=== PATIENT | female | born 1940 | race Caucasian/White ===

== ENCOUNTER 2017-08-27 13:58 | Inpatient (IN) | payer MEDICARE ==
[~2017-08-27] VITALS: Ht 152.4 cm; Wt 53.1 kg
[~2017-08-27 13:58] MED LIST: ATORVASTATIN CA40 MG PO; CARVEDILOL12.5 MG PO; CYMBALTA60 MG PO; FUROSEMIDE 40 M40 MG PO; GABAPENTIN 100100 MG PO; NORVASC5 MG PO; ULTRAM 50MG TAB50 MG PO
[2017-08-27 14:01] VITALS: BP 155/64
[2017-08-27 14:21] LABS: ABSOLUTE EOSINOPHILS 0.2 thou/uL (0.0-0.7); ABSOLUTE LYMPHOCYTES 1.6 thou/uL (0.8-5.3); ABSOLUTE MONOCYTES 0.7 thou/uL (0.0-1.2); ABSOLUTE NEUTROPHILS 5.1 thou/uL (1.6-8.1); BASOPHILS 0.6 %; HEMATOCRIT 37.3 % (37.0-47.0); HEMOGLOBIN 12.2 gm/dL (12.0-15.0); LYMPHOCYTES 20.7 %; MCH 31.3 pg (26.0-34.0); MCHC 32.8 g/dL (28.0-37.0); MCV 95.4 fL (80.0-100.0); MONOCYTES 9.7 %; MPV 7.8 fl. (7.2-11.1); NUCLEATED RBCS 0 /100WBC; PLATELET COUNT* 201 thou/uL (150-400); RBC 3.91 mil/uL (4.20-5.00); RDW-CV 13.8 % (10.5-14.5); WBC 7.6 thou/uL (4.0-11.0)
[2017-08-27 14:29] LABS: ANION GAP 9 mmol/L (7-16); BUN 23 mg/dL (7-18); CALCIUM 9.3 mg/dL (8.5-10.1); CHLORIDE 100 mmol/L (98-107); CO2 26 mmol/L (21-32); GLUCOSE 84 mg/dL (70-99); POTASSIUM 3.3 mmol/L (3.5-5.1); SODIUM 135 mmol/L (136-145)
[2017-08-27 14:33] LABS: APTT 26.7 Seconds (25.0-31.3); INR 1.1; PROTIME 10.3 Seconds (9.20-11.50)
[2017-08-27 14:48] LABS: ALBUMIN 3.5 g/dL (3.4-5.0); ALKALINE PHOSPHATASE 72 U/L (46-116); CK-MB MASS 4.4 ng/mL (<0.5-3.6); LIPASE 2123 U/L (73-393); MAGNESIUM 1.5 mg/dL (1.8-2.4); NT-PRO BRAIN NAT PEPTIDE 410 pg/mL (<300); SGOT 20 U/L (15-37); SGPT 21 U/L (30-65); TOTAL BILIRUBIN 0.6 mg/dL (<0.1-1.0); TOTAL PROTEIN 6.6 g/dL (6.4-8.2); TROPONIN-I LEVEL <0.06 ng/mL (<0.06)
[2017-08-27 16:46] VITALS: BP 165/61
[2017-08-27 17:16] VITALS: BP 166/65
[2017-08-27] MEDS ORDERED: ASPIR 8181 MG PO (17:44)
--- NOTE | 2017-08-27 19:26 | NUR ---
PT ADMITED TO TELE UNDER THE CARE OF DR APARICIO. PT ORIENTED TO THE UNIT AND SERVICES. NEUROLOGY PROFESSOR APPLIED AND VS OBTAINED. PT C/O PAIN IN UPPER ABD AREA TREATED WITH PRN IV PAIN MEDICATIONS BUT PT REPORTS ONLY PARTIAL RELIEF. DR APARICIO NOTIFIED OF PAIN. MEDICATIONS RECONCILED, ASSESSMENT COMPLETED. NURSING WILL CONTINUE TO MONITOR.
[2017-08-27 20:10] VITALS: BP 141/45
[2017-08-27] MEDS ORDERED: SINGULAIR 10 MG10 M1 PO (21:34)
[2017-08-28] VITALS: BP 142/55
[2017-08-28 04:30] VITALS: BP 151/55
--- NOTE | 2017-08-28 05:40 | NUR ---
ASSUMED CARE AROUND 1930. PT A/OX4, FORGETFUL AT TIMES, VERY PLEASANT. FAMILY IN LAST NIGHT TO CELEBRATE MOTHERS DAY WITH PT. PT REPORTING ABDOMINAL PAIN, WORSE WITH TOUCH. TELE MONITOR TRACING SR/SB WITH HR DOWN TO 50'S. ON 2L NC. IVF INFUSING ORDERED. VSS, AFEBRILE. NPO, SIP OF WATER GIVEN WITH HS MEDS, PT TOLERATED WELL. DENIES NAUSEA. UP SBA. PT APPEARED TO REST WELL. WILL CONTINUE WITH PLAN OF CARE.
[2017-08-28 08:00] VITALS: BP 164/75
--- NOTE | 2017-08-28 08:00 | NUR ---
ASSUMED PT. CARE AND RECEIVED REPORT AT 0730. PT A/OX4, BUT FORGETFUL AT TIMES. VSS, MONITOR ON TRACING SB. FULL ASSESSMENT COMPLETED, REFER TO CHARTING. PT. ON RA @ 92%, O2 AT HS 2LNC. PT. WORRIED ABOUT FEEDING CHICKENS AT HOME AND STATES SHE ALSO HAS SOME LEGAL DOCUMENT THAT NEEDS TO BE TAKEN CARE OF SO SHE WANTS TO LEAVE SOON. C/O MILD PAIN 3/10 POST PAIN MED, STATES IT IS TOLERABLE AT THIS TIME. CALL LIGHT IN REACH, WILL CONTINUE WITH PLAN OF CARE.
[2017-08-28] MEDS ORDERED: OMEPRAZOLE 20 M20 MG PO (08:33)
--- NOTE | 2017-08-28 10:11 | EKG ---
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
--- NOTE | 2017-08-28 12:00 | NUR ---
MET WITH PT TO DISCUSS HOME SITUATION/DC PLANNING. PT LIVES IN SAME HOME HER DTR/SON IN LAW AND FAMILY. SHE HAS HER OWN AREA THAT IS 'LIKE A SUITE.' PT IS ABLE TO DO HER OWN ADLS BUT NEEDS SOME HELP WITH CLEANING, STATES HER GRANDDTR IS GOING TO ASSIST HER. PT WEARS O2 2-3L AT NIGHT THRU 'ABLE' AND HAS NEBULIER, WALKER AND CANE THAT SHE USES PRN. PT HAS BEEN TO SNF IN THE PAST IN 2 DIFFERENT STATES BUT NOT IN THIS AREA. DENIES HAVING HH. PT PLANS TO RETURN HOME AT [place]. DENIES NEEDS AT THIS TIME. WILL FOLLOW
[2017-08-28 12:17] VITALS: BP 129/53
[2017-08-28 14:10] LABS: CREATININE 0.8 mg/dL (0.6-1.3); MAGNESIUM 1.7 mg/dL (1.8-2.4); POTASSIUM 3.7 mmol/L (3.5-5.1)
[2017-08-28 16:06] VITALS: BP 146/66
--- NOTE | 2017-08-28 19:15 | NUR ---
PT. STABLE THROUGH SHIFT. CONTINUES ON IVF'S, TOLERATING. STARTED CLEAR LIQUID DIET, NO ADVERSE EFFECTS NOTED. PT. UP TO SHOWER, STEADY ON FEET. PAIN WELL CONTROLLED WITH ULTRAM. HOURLY ROUNDING COMPLETED THROUGH OUT THE DAY FOR PT. SAFETY.
[2017-08-28 20:00] VITALS: BP 131/56
[2017-08-29] VITALS: BP 107/55
[2017-08-29 04:00] VITALS: BP 150/72
--- NOTE | 2017-08-29 06:03 | NUR ---
ASSUMED PT CARE AT !9:15. REPORT RECEIVED FORM NURSE. PT IS ALERT AWAKE ORIENTED X4. FORGETFUL AT TIME. FAMILY MEMEBRES AT BEDDIDE. PT IS LAYING IN BED GETTING 2 L O2 VIA NC. VITAL SIGNS TAKEN, RESULTS WITHIN NORMAL LIMIT. ASSESSMENT PERFOREMED AT BEDSIDE. REFER TO CHART. SINUS RYTHM TO AINSLEY ON THE CREDIT OPERATIONS PROCESSOR. PT STATES THAT SHE HAS SOME GENERALIZED PAIN. TRAMADOL WAS GIVEN. IV LINE PATENT NS INFUSING AT 150CC /HR. PT DID NOT SLEEP WELL DURING SHIFT BECASUE SHE REFUSES TO TURN LIGHTS AND TV OFF. SHE READ MOST OF THE NIGHT. MEDICATIONS WERE ADMINSTERED ORDERED WELL SECOND DOSE OF MAG REPLACEMENT. NS BAG CHANGED OVERNIGHT NEEDED. LAB VALUES REVIEWED THIS AM. PT IS LAYING IN BED. WITH NC ON DELOIVERING 2 L.
[2017-08-29 08:02] VITALS: BP 137/55
--- NOTE | 2017-08-29 08:49 | NUR ---
RECIEVED REPORT FROM IAN AND ASSUMED CARE OF PT @ 1649.PT IS A/O X4,VSS,TRACING SB ON MONITOR.LUNG SOUNDS ARE COARSE AND WHEEZY.LAST BM YESTERADAY.IV RIGHT FOREARM PATENT WITH NS RUNNING @ 150ML/HR.PT IS CALM AND COOPERATIVE WITH C/O PAIN 4 OUT OF 10 ABDOMNIAL PAIN.PT IS UP AD ROXANA IN ROOM.CALL LIGHT IN PLACE.WILL CONTINUE TO MONITOR.
[2017-08-29 09:09] LABS: HEPATITIS B SURFACE AG Negative (Negative)
[2017-08-29 11:59] VITALS: BP 134/64
[2017-08-29 15:16] VITALS: BP 109/52
--- NOTE | 2017-08-29 17:04 | NUR ---
VSS,CARDIAC MONITORING IN PLACE WITH NO CHANGES.PT REMAINS ON 2L O2 NC.PT RPOGRESSING TOWARDS GOALS.PT PAIN WELL MANAGED WITH PO MEDICATION.IV PATENT AND SALINE LOCKED.PT TOLERATING FULL LIQUID DIET WELL.PT INFORMED OF PLAN OF CARE AND COMMUNICATES UNDERSTANDING.PT UP AD ROXANA IN ROOM AND TO BATHROOM.HOURLY ROUNDING COMPLETED FOR PT SAFETY.CALL LIGHT IN PLACE.WILL CONTINUE TO MONITOR FOR DURATION OF SHIFT.
[2017-08-29 20:00] VITALS: BP 146/60
--- NOTE | 2017-08-29 23:23 | NUR ---
ASSUMED PT CARE AT 19:15. REPORT RECEIVED FROM NURSE. PT IS ALERT, AWAKE, ORIENTED X 4. SINUS AINSLEY ONTHE MONITOR, IV LINE IS PATENT. COMPLAIN OF GENERALIZED ABDOMINAL PAIN LEVEL OF 5. VITALS ARE WITHIM NORMAL LIMIT. ASSESSMENT PERFORMED AT BEDSIDE. FOUND SOME WHEEZING IN ALL FOUR QUADRANTS . LASIX WAS ADMINSTERED PREVIOUS SHIFT AND IV FLUID WAS STOPPED. OXYGEN SATURATION IS 94 ON 3 L NC. BREATHING TREATMENT EAS RECEIVED SCHEDULES. PT IS ASYMPTOMATIC. NO SOB. WILL CONTINUE TO MONITOR BREATHING AND LUNG SOUNDS AND CONTACT MD GLOBAL TRANSPORTATION MANAGER IN THE AM FOR SOME MORE LASIX. IF PT BECOMES SYMPTOMATIC, WILL CONTACT MD IMMEDIATELY. TRAMADOL WAS ADMINISTERED FOR ABDOMINAL PAIN ALONG WITH OTHER SCHEDULED MEDICATIONS. PT IS NOW RESTING IN BED. MAGNESIUM REPLACEMENT WAS ADMINISTERED. WILL GIVE SECOND DOSE IN THE AM. WILL CONTINUE TO MONITOR LUNGS AND O2 SATURATION.
[2017-08-30] VITALS: BP 156/66
[2017-08-30 04:00] VITALS: BP 166/67
[2017-08-30 04:54] LABS: HEMATOCRIT 36.1 % (37.0-47.0); MCH 31.4 pg (26.0-34.0); MCHC 33.2 g/dL (28.0-37.0); MCV 94.7 fL (80.0-100.0); MPV 8.6 fl. (7.2-11.1); RBC 3.81 mil/uL (4.20-5.00); RDW-CV 14.5 % (10.5-14.5); WBC 8.3 thou/uL (4.0-11.0)
[2017-08-30 05:07] LABS: CALCIUM 7.9 mg/dL (8.5-10.1); CREATININE 0.7 mg/dL (0.6-1.3); MAGNESIUM 1.7 mg/dL (1.8-2.4); POTASSIUM 3.7 mmol/L (3.5-5.1)
[2017-08-30 05:19] LABS: ALBUMIN 2.8 g/dL (3.4-5.0); DIRECT BILIRUBIN 0.1 mg/dL (<0.1-0.3); TOTAL BILIRUBIN 0.5 mg/dL (<0.1-1.0); TOTAL PROTEIN 5.7 g/dL (6.4-8.2)
[2017-08-30 08:00] VITALS: BP 136/76
--- NOTE | 2017-08-30 08:11 | NUR ---
RECIEVED REPORT FROM IAN AND ASSUMED CARE OF PT @ 7565.PT IS A/O X4,VSS,TRACING SB ON MONITOR.LUNG SOUNDS ARE COARSE WITH WHEEZES.LAST BM WAS YESTERDAY.IV RIGHT FOREARM PATENT AND SALINE LOCKED.PT IS CALM AND COOPERATIVE WITH NO C/O PAIN AT TIME OF ASSESSMENT.PT IS UP AD ROXANA IN ROOM TO BATHROOM.LEFT RESTING IN BED WITH CALL LIGHT IN PLACE.PT IS HOPING FOR POSSIBLE DISCHARGE TODAY.WILL CONTINUE TO MONITOR.
[2017-08-30 10:20] LABS: CHOLESTEROL 112 mg/dL (<200); TRIGLYCERIDE 76 mg/dL (<150)
[2017-08-30 12:05] VITALS: BP 130/58
[2017-08-30 14:18] VITALS: BP 130/58
--- NOTE | 2017-08-30 15:41 | NUR ---
RECIEVED DISCHARGE ORDERS.PAPERWORK COMPLETED AND REVIEWED WITH PT.IV REMOVED. HEART MONITOR REMOVED AND RETURNED TO NURSING STATION.ALL PERSONAL BELONGINGS PACKED AND TAKEN WITH PT.WALKED OUT WITH TECH TO FRONT OF HOSPITAL @ 6815.
--- NOTE | 2017-09-11 08:22 | CON ---
[address] [address] CONSULTATION Name: SHAKILA GALEANO Room: [address] IN ..#: [id number] Admission: 08/27/17 Attend Phys: Laine Cody Discharge: 08/30/17 Date of : 40 Report #: [id number] THIS REPORT FOR: //name// CC: Madalyn Lainez DATE OF SERVICE: 08/29/2017 ADDENDUM This is a 76-year-old female who presented to hospital with epigastric pain, which she thought that she may be having a heart attack. The patient reports that the night before, she was eating lobster that her daughter had sent from [facility]. She also had a lot of butter . She has been told that she has high triglycerides in the past, but has not been taking anything for it. Since admission, she was found to have elevated lipase with normal liver function tests. CT also shows 3.5 cm x 3.5 cm abdominal aortic aneurysm without there being any peripancreatic inflammation. The patient reports that since her C. diff couple years ago, her bowel habits have never been same. She had excessive gas, bloating and her stool is flaky. I will obtain a triglyceride level and follow up her lipase. In reference to her excessive gas and bloating, we will consider treating checking her for SIBO by hydrogen breath test. If her upper GI symptoms persist, we may consider EGD, as she takes Prilosec for gastroesophageal reflux disease and has not had upper scope for many years. <ELECTRONICALLY SIGNED> By: Kelsi Vitale MD 09/11/17 0822 [id number] Vitale MD /nt
--- NOTE | 2017-09-11 08:22 | CON ---
[address] [address] CONSULTATION Name: SHAKILA GALEANO Room: [address] IN .R.#: [id number] Admission: 08/27/17 Attend Phys: Laine Cody Discharge: 08/30/17 Date of : 40 Report #: [id number] THIS REPORT FOR: //name// CC: Madalyn Lainez DICTATED BY: Harper Mcarthur [facility] DATE OF SERVICE: 08/29/2017 PRIMARY CARE PHYSICIAN: Madalyn Wu MD Please note at the time of this dictation, the patient was seen and physically examined by myself. REASON FOR CONSULTATION: Elevated lipase, pancreatitis. HISTORY OF THE PRESENT ILLNESS: This is a 76-year-old female who presented to the Emergency Room with having this chest pain that she rated an 8/10 that she complained of in her epigastric to left upper quadrant area that had been prolonging for about 2 hours while she was out gardening. The patient states she has been having this discomfort in the upper quadrant for some time with this pressure feeling. She does have issues with gas and bloating that has seemed to have gotten worse over the last 6 months or so as well. She states her bowels are moving daily once or twice and are somewhat loose and she did have a colonoscopy with us back in 2011 that was completely normal. The patient did leave the area for a while and went to [place] back in 2016 where she had valvular surgery there and subsequently developed C. diff and she had a colonoscopy done at that time and she states she has just not been the same since. It is noted on admission, her lipase was 2123; however, on CT scan shows no pancreatic abnormalities at this time. The patient states her pain is significantly better. She denies any nausea, vomiting or any fever or chills at this time. ALLERGIES: No known drug allergies. MEDICATIONS: From home include Coreg, furosemide, Lipitor, Norvasc, Cymbalta, Ultram, and Neurontin. The patient did start a new medication for her osteoporosis that is once weekly, but she does not recall the name of it and that has been in the last month or so. PAST MEDICAL HISTORY: Hypertension, edema, hypercholesterolemia. She has had chronic back pain as well, in which she takes the tramadol for. PAST SURGICAL HISTORY: Valvular [place] back [place] [address] CONSULTATION Name: SHAKILA GALEANO Room: [address] IN [facility]#: [id number] Admission: 08/27/17 Attend Phys: Laine Cody Discharge: 08/30/17 Date of : 40 Report #: [id number] FAMILY HISTORY: Negative for any GI or female cancers. SOCIAL HISTORY: The patient lives by herself. She has smoked a half a pack a day for the last 50 years. 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 REVIEW OF SYSTEMS: Twelve-point review of systems essentially negative except what is mentioned in the HPI. PHYSICAL EXAMINATION: VITAL SIGNS: Temperature 36.6, pulse 59, respirations 16, blood pressure 134/64. HEART: Regular rate and rhythm. LUNGS: Clear. ABDOMEN: Soft, positive bowel sounds in all 4 quadrants with some epigastric tenderness noted to palpation and somewhat in the left upper quadrant area. LABORATORY DATA: Hemoglobin 12.2, hematocrit 37.3, white count is 7.6, platelets 201. Sodium 140, potassium 3.7, chloride 107, CO2 of 29, BUN is 22, creatinine 0.8, GFR is 70, glucose is 91. CT shows no ductal dilatation and pancreas is essentially negative. It does reveal AAA 3.5 x 3.5. Acute hepatitis panel was negative and her lipase is 2123. IMPRESSION: 1. Elevated lipase. 2. Abdominal pain. 3. Gas and bloating. 4. Gastroesophageal reflux disease. 5. Alcohol misuse 2-3 beers daily. PLAN: 1. Full liquid diet advance. 2. Consider treatment for SIBO with Flagyl given her history of C. diff back in 2016. 3. Likely will need an EUS as an outpatient. 4. Further recommendations to be made once Dr. Vitale sees the patient later today. Thank you for allowing us to participate in this patient's care. Please do not hesitate to call with any questions in regard to this consult. <ELECTRONICALLY SIGNED> By: Kelsi Vitale MD 09/11/17 0822 1426 [id number] Vitale MD /nt
== END 2017-08-30 15:25 | disposition home or self-care (01) | DRG 438 ==
LOC: M.ERS 13:58 → M.2W 15:57 → M.TBA-ER 15:57 → M.2W 17:01
PROVIDERS: Family Medicine; Internal Medicine Gastroenterology; ADMIT Internal Medicine
DX: K85.90 Acute pancreatitis without necrosis or infection, unspecified (principal); I50.21 Acute systolic (congestive) heart failure; E87.1 Hypo-osmolality and hyponatremia; I47.1 Supraventricular tachycardia; F10.10 Alcohol abuse, uncomplicated; J44.9 Chronic obstructive pulmonary disease, unspecified; F17.210 Nicotine dependence, cigarettes, uncomplicated; I10 Essential (primary) hypertension; E78.00 Pure hypercholesterolemia, unspecified; G89.29 Other chronic pain; M54.9 Dorsalgia, unspecified; K21.9 Gastro-esophageal reflux disease without esophagitis; Z95.2 Presence of prosthetic heart valve; Z79.899 Other long term (current) drug therapy